=== PATIENT | female | born 1995 | race Caucasian/White ===

== ENCOUNTER 2019-01-09 11:40 | Emergency (ER) | payer OTHER ==
--- NOTE | 2019-01-09 12:27 | ERPHSYRPT ---
- History of Present Illness Time Seen by Provider: 01/09/19 12:15 Historian: patient Exam Limitations: clinical condition Patient Subjective Stated Complaint: since last c/o abdominal pain N/V/ D right side cramping. hx ovarian cyst,PCOS Triage Nursing Assessment: alert and in no distress. c/o right side abdominal pain witn n/v/d no pain on palpation. was able to eat pizza last night. was seen at the clinic on sunday.. had labs done that were negative. Physician History: PATIENT WITH A HISTORY OF POLYCYSTIC OVARIAN DISEASE COMPLAINS OF FREQUENT EMESIS AND WATERY DIARRHEA X 7 DAYS HAS ASSOCIATED LOWER MID ABDOMINAL PAINS. DENIES FEVER, URINARY SYMPTOMS BUT COMPLAINS OF VAGINAL SPOTTING. Timing/Duration: day(s) Activities at Onset: none Quality: sharpness Abdominal Pain Onset Location: suprapubic Pain Radiation: no radiation Severity of Pain-Max: moderate Severity of Pain-Current: moderate Modifying Factors: Improves With: nothing Associated Symptoms: loss of appetite, nausea Previous symptoms: no prior history Allergies/Adverse Reactions: No Known Drug Allergies Allergy (Unverified 07/28/13 16:43) Hx Influenza Vaccination/Date Given: No Hx Pneumococcal Vaccination/Date Given: No - Review of Systems Constitutional: No Symptoms, No Fever, No Chills Eyes: No Symptoms Ears, Nose, & Throat: No Symptoms Respiratory: No Cough, No Dyspnea Cardiac: No Chest Pain, No Edema, No Syncope Abdominal/Gastrointestinal: Abdominal Pain, Nausea, Vomiting, Diarrhea Genitourinary Symptoms: No Symptoms, No Dysuria Musculoskeletal: No Symptoms, No Back Pain, No Neck Pain Skin: No Rash Neurological: No Dizziness, No Focal Weakness, No Sensory Changes Psychological: No Symptoms Endocrine: No Symptoms All Other Systems: Reviewed and Negative - Past Medical History Pertinent Past Medical History: Yes Female Reproductive Disorders: Other Other Medical History: heart valve leakage,PCOS,ovarian cysts - Past Surgical History Past Surgical History: No - Social History Smoking Status: Never smoker Exposure to second hand smoke: No Drug Use: none Patient Lives Alone: No - Female History Hx Last Menstrual Period: unsure Hx Now: (UNKNOWN) - Nursing Vital Signs Nursing Vital Signs: Initial Vital Signs Temperature 97.7 F 01/09/19 12:03 Pulse Rate 89 01/09/19 12:03 Respiratory Rate 18 01/09/19 12:03 Blood Pressure 147/91 04/11/19 12:03 Pain Scale Pain Intensity 6 - Physical Exam General Appearance: no apparent distress, alert Eye Exam: PERRL/EOMI, eyes nml inspection Ears, Nose, Throat Exam: normal ENT inspection, pharynx normal, moist mucous membranes Neck Exam: normal inspection, non-tender, supple, full range of motion Respiratory Exam: normal breath sounds, lungs clear, No respiratory distress Cardiovascular Exam: regular rate/rhythm, normal heart sounds Gastrointestinal/Abdomen Exam: soft, normal bowel sounds, tenderness ( SUPRAPUBIC TENDERNESS, NO GUARDING), No mass Pelvic Exam: normal external exam, adnexal tenderness (MINIMAL LEFT ADNEXAL TENDERNESS, NORMAL UTERINE SIZE) Back Exam: normal inspection, normal range of motion, No CVA tenderness, No vertebral tenderness Extremity Exam: normal inspection, normal range of motion, pelvis stable Neurologic Exam: alert, oriented x 3, cooperative, normal mood/affect, nml cerebellar function, sensation nml, No motor deficits Skin Exam: normal color, warm, dry SpO2 Interpretation: normal SpO2: 98 - CT Exams Abdomen/Pelvis CT Interpretation: Discussed w/radiologist (NORMAL APPENDEX, PROMINENT OVARIES) Ordered Tests: Active Orders 24 hr Category Date Time Status Clean Catch Urine Specimen STAT Care 01/09/19 12:23 Active IV Insertion STAT Care 01/09/19 12:23 Active Orthostatic Vital Signs STAT Care 01/09/19 12:25 Active ABDOMEN AND PELVIS W CONTRAST [CT] Stat Exams 01/09/19 12:24 Completed BMP Stat Lab 01/09/19 12:15 Completed CBC W DIFF Stat Lab 01/09/19 12:15 Completed CULTURE,URINE Stat Lab 01/09/19 12:23 Received HCG QUALITATIVE,SERUM Stat Lab 01/09/19 12:15 Completed UA W/RFX UR CULTURE Stat Lab 01/09/19 12:23 Completed Wet Prep Stat Lab 01/09/19 13:45 Completed Medication Summary Generic Name Dose Route Start Last Admin Trade Name Freq PRN Reason Stop Dose Admin Sodium Chloride 1,000 mls @ 1,000 mls/hr 01/09/19 12:30 01/09/19 13:55 Sodium Chloride 0.9% 1000 Ml IV 02/08/19 12:29 Infused .Q1H KALEE Infusion Discontinued Medications Generic Name Dose Route Start Last Admin Trade Name Freq PRN Reason Stop Dose Admin Fentanyl Citrate 50 mcg 01/09/19 13:37 01/09/19 14:01 Sublimaze 100 Mcg/2 Ml IV 01/09/19 13:38 50 mcg STAT ONE Administration Fentanyl Citrate Confirm 01/09/19 13:57 Sublimaze 100 Mcg/2 Ml Administered 01/09/19 13:58 Dose 100 mcg .ROUTE .STK-MED ONE Ceftriaxone Sodium/Dextrose 1 g in 50 mls @ 100 mls/hr 01/09/19 13:11 14:08 Rocephin 1 Gm-D5w 50 Ml Bag IV 01/09/19 13:40 Infused STAT STA Infusion Ceftriaxone Sodium/Dextrose Confirm 01/09/19 13:29 Rocephin 1 Gm-D5w 50 Ml Bag Administered 01/09/19 13:30 Dose 1 g in 50 mls @ ud IV .STK-MED ONE Ketorolac Tromethamine 30 mg 01/09/19 13:36 01/09/19 14:02 Toradol 30 Mg Injection IV 01/09/19 13:37 30 mg STAT ONE Administration Ketorolac Tromethamine Confirm 01/09/19 13:56 Toradol 30 Mg Injection Administered 01/09/19 13:57 Dose 30 mg .ROUTE .STK-MED ONE Ondansetron HCl 4 mg 01/09/19 12:23 01/09/19 12:38 Zofran 4 Mg/2 Ml Vial IV 01/09/19 12:24 4 mg STAT ONE Administration Ondansetron HCl Confirm 01/09/19 12:28 Zofran 4 Mg/2 Ml Vial Administered 01/09/19 12:29 Dose 4 mg .ROUTE .STK-MED ONE Lab/Rad Data: Laboratory Result Diagrams 01/09/19 12:15 01/09/19 12:15 Laboratory Results 01/09/19 01/09/19 01/09/19 Range/Units 13:45 13:45 12:23 WBC (4.0-10.5) K/mm3 RBC (4.1-5.4) M/mm3 Hgb (12.0-16.0) gm/dl Hct (35-47) % MCV (78-100) fl MCH (26-32) pg MCHC (32-36) g/dl RDW (11.5-14.0) % Plt Count (150-450) K/mm3 MPV (6-9.5) fl Gran % (36.0-66.0) % Eos # (Auto) (0-0.5) Absolute Lymphs (auto) (1.0-4.6) Absolute Monos (auto) (0.0-1.3) Lymphocytes % (24.0-44.0) % Monocytes % (0.0-12.0) % Eosinophils % (0.00-5.0) % Basophils % (0.0-0.4) % Absolute Granulocytes (1.4-6.9) Basophils # (0-0.4) Sodium (137-145) mmol/L Potassium (3.5-5.1) mmol/L Chloride (98-107) mmol/L Carbon Dioxide (22-30) mmol/L Anion Gap (5-15) MEQ/L BUN (7-17) mg/dL Creatinine (0.52-1.04) mg/dL Estimated GFR ML/MIN Glucose (74-106) mg/dL Calcium (8.4-10.2) mg/dL Serum , Qual (Negative) Urine Color YELLOW (YELLOW) Urine Appearance CLOUDY (CLEAR) Urine pH 6.0 (5-6) Ur Specific [place] 1.023 (1.005-1.025) Urine Protein NEGATIVE (Negative) Urine Ketones NEGATIVE (NEGATIVE) Urine Blood LARGE (0-5) Stoney/ul Urine Nitrite NEGATIVE (NEGATIVE) Urine Bilirubin NEGATIVE (NEGATIVE) Urine Urobilinogen NEGATIVE (0-1) mg/dL Ur Leukocyte Esterase SMALL (NEGATIVE) Urine WBC (Auto) 11-15 (0-5) /HPF Urine RBC (Auto) 11-15 (0-2) /HPF U Epithel Cells (Auto) FEW (FEW) /HPF Urine Bacteria (Auto) MANY (NEGATIVE) /HPF Urine Mucus (Auto) SLIGHT (NEGATIVE) /HPF Urine Culture Reflexed YES (NO) Urine Glucose NEGATIVE (NEGATIVE) mg/dL WBC (Wet Prep) Rare RBC (Wet Prep) Few Epi Cells (Wet Prep) Few Bacteria (Wet Prep) Rare Clue Cells (Wet Prep) None Seen Trichomonas (Wet Prep) None Seen Budding Yeast (Wet Prp) None Seen Chlamydia DNA (PCR) NEGATIVE N.gonorrhoeae DNA Probe NEGATIVE 01/09/19 01/09/19 01/09/19 Range/Units 12:15 12:15 12:15 WBC 9.4 (4.0-10.5) K/mm3 RBC 5.03 (4.1-5.4) M/mm3 Hgb 13.9 (12.0-16.0) gm/dl Hct 43.3 (35-47) % MCV 86.1 (78-100) fl MCH 27.6 (26-32) pg MCHC 32.1 (32-36) g/dl RDW 13.9 (11.5-14.0) % Plt Count 334 (150-450) K/mm3 MPV 11.3 H (6-9.5) fl Gran % 70.7 H (36.0-66.0) % Eos # (Auto) 0.09 (0-0.5) Absolute Lymphs (auto) 2.00 (1.0-4.6) Absolute Monos (auto) 0.63 (0.0-1.3) Lymphocytes % 21.2 L (24.0-44.0) % Monocytes % 6.7 (0.0-12.0) % Eosinophils % 1.0 (0.00-5.0) % Basophils % 0.4 (0.0-0.4) % Absolute Granulocytes 6.67 (1.4-6.9) Basophils # 0.04 (0-0.4) Sodium 143 (137-145) mmol/L Potassium 4.0 (3.5-5.1) mmol/L Chloride 104 (98-107) mmol/L Carbon Dioxide 26 (22-30) mmol/L Anion Gap 16.7 H (5-15) MEQ/L BUN 11 (7-17) mg/dL Creatinine 0.88 (0.52-1.04) mg/dL Estimated GFR > 60.0 ML/MIN Glucose 90 (74-106) mg/dL Calcium 10.0 (8.4-10.2) mg/dL Serum , Qual NEGATIVE (Negative) Urine Color (YELLOW) Urine Appearance (CLEAR) Urine pH (5-6) Ur Specific [place] (1.005-1.025) Urine Protein (Negative) Urine Ketones (NEGATIVE) Urine Blood (0-5) Stoney/ul Urine Nitrite (NEGATIVE) Urine Bilirubin (NEGATIVE) Urine Urobilinogen (0-1) mg/dL Ur Leukocyte Esterase (NEGATIVE) Urine WBC (Auto) (0-5) /HPF Urine RBC (Auto) (0-2) /HPF U Epithel Cells (Auto) (FEW) /HPF Urine Bacteria (Auto) (NEGATIVE) /HPF Urine Mucus (Auto) (NEGATIVE) /HPF Urine Culture Reflexed (NO) Urine Glucose (NEGATIVE) mg/dL WBC (Wet Prep) RBC (Wet Prep) Epi Cells (Wet Prep) Bacteria (Wet Prep) Clue Cells (Wet Prep) Trichomonas (Wet Prep) Budding Yeast (Wet Prp) Chlamydia DNA (PCR) N.gonorrhoeae DNA Probe - Progress Progress: improved, pain not gone completely Progress Note: 01/09/19 15:39 IV NORMAL SALINE BOLUS 1 LITER, ZOFRAN 4MG, [id number], FENTANYL 50MCG IV, ALL LABS REVIEWED AND ARE NORMAL EXCEPT URINE WBC 11-15, BACTERIA-MANY, Counseled pt/family regarding: lab results, diagnosis, rad results - Departure Departure Disposition: Home Clinical Impression: ABDOMINAL PAIN, URINARY TRACT INFECTION Condition: Stable Critical Care Time: No Referrals: ANASTACIA RIDLEY RUG WEAVER [Primary Care Provider] - Additional Instructions: ANTIBIOTIC LEVAQUIN 500MG DAILY FOR 10 DAYS. ZOFRAN 4MG EVERY 6 HOURS FOR NAUSEA. TORADOL 10MG EVERY 6 HOURS FOR PAIN NEEDED. CONSULT YOUR PRIMARY CARE PROVIDER FOR FOLLOWUP IN 1 WEEK. Prescriptions: Ketorolac Tromethamine [Toradol] 10 mg PO Q6H PRN PRN #20 tablet PRN Reason: Pain Ondansetron ODT 4 MG [Zofran Odt 4 mg] 4 mg PO Q6H PRN PRN #10 tab.rapdis PRN Reason: Nausea Levofloxacin [Levaquin] 500 mg PO DAILY #10 tablet
[2019-01-09] MEDS ORDERED: Sodium Chloride 0.9% 1000 ML 1,000 ML ONE (12:28)
[2019-01-09] MEDS ORDERED: Zofran 4 MG/2 ML VIAL ONE (12:28)
[2019-01-09 12:35] LABS: ANION GAP 16.7 MEQ/L (5-15); BLOOD UREA NITROGEN 11 mg/dL (7-17); CHLORIDE 104 mmol/L (98-107); Carbon Dioxide 26 mmol/L (22-30); Creatinine 1 0.88 mg/dL (0.52-1.04); Glucose 90 mg/dL (74-106); SODIUM 143 mmol/L (137-145)
[2019-01-09] MEDS: Sodium Chloride 0.9% 1000 ML 1,000 ML IV SCH (12:37)
[2019-01-09] MEDS: Zofran 4 MG/2 ML VIAL IV ONE (12:38)
[2019-01-09 12:50] LABS: BASOPHIL % 0.4 % (0.0-0.4); Basophil (Absolute #) 0.04 (0-0.4); Eosinophil (Absolute #) 0.09 (0-0.5); Granulocyte Absolute (ANC) 6.67 (1.4-6.9); Granulocytes % 70.7 % (36.0-66.0); Hematocrit 43.3 % (35-47); Hemoglobin 13.9 gm/dl (12.0-16.0); Lymphocytes % 21.2 % (24.0-44.0); Mean Cell Volume 86.1 fl (78-100); Mean Corpuscular Hemoglobin 27.6 pg (26-32); Mean Corpuscular Hgb Concent. 32.1 g/dl (32-36); Mean Platelet Volume 11.3 fl (6-9.5); Monocyte (Absolute #) 0.63 (0.0-1.3); Monocytes % 6.7 % (0.0-12.0); Platelet Count 334 K/mm3 (150-450); Red Blood Count 5.03 M/mm3 (4.1-5.4); Red Cell Distribution Width 13.9 % (11.5-14.0); White Blood Count 9.4 K/mm3 (4.0-10.5)
[2019-01-09 13:03] LABS: Appearance CLOUDY (CLEAR); Bacteria MANY /HPF (NEGATIVE); Bilirubin NEGATIVE (NEGATIVE); Blood LARGE Ery/ul (0-5); Epithelial Cells FEW /HPF (FEW); Glucose NEGATIVE (NEGATIVE); Ketones NEGATIVE (NEGATIVE); Leukocyte Esterase SMALL (NEGATIVE); Mucus SLIGHT /HPF (NEGATIVE); Nitrite NEGATIVE (NEGATIVE); Protein,Urine Dip NEGATIVE (Negative); Specific Gravity 1.023 (1.005-1.025); Urobilinogen NEGATIVE mg/dL (0-1)
[2019-01-09] MEDS ORDERED: ROCEPHIN 1 Gm-D5w 50 ml Bag** 1 G/50 ML IVPB IV ONE (13:29)
[2019-01-09] MEDS: ROCEPHIN 1 Gm-D5w 50 ml Bag** 1 G/50 ML IVPB IV STA (13:33)
[2019-01-09] MEDS ORDERED: TORAdol 30 mg Injection ONE (13:56)
[2019-01-09] MEDS ORDERED: SUBLIMAZE 100 MCG/2 ML ONE (13:57)
[2019-01-09] MEDS: SUBLIMAZE 100 MCG/2 ML IV ONE (14:01)
[2019-01-09] MEDS: TORAdol 30 mg Injection IV ONE (14:02)
[2019-01-09 14:24] LABS: Bacteria Rare; Clue Cells None Seen
[2019-01-09 14:25] LABS: Trichomonas None Seen
[2019-01-09 14:27] LABS: Red Blood Cells Few; White Blood Cells Rare; Yeast None Seen
--- NOTE | 2019-01-09 15:10 | XRAY ---
Indication: Lower abdominal pain one week. Polycystic ovary syndrome reported on previous CT. Multiple contiguous axial images obtained through the abdomen and pelvis using 80 cc Isovue 300 contrast only. Comparison: April 23, 2017. Lung bases demonstrates bibasilar dependent atelectasis. No infiltrate or effusion. Heart is not enlarged. Noncontrasted stomach and bowel loops appear nonobstructed. Normal appendix. No free fluid/air. Again both ovaries are slightly prominent and presumed related to patient's history of polycystic ovary syndrome. Again mild diffuse fatty liver. Remaining liver, gallbladder, pancreas, spleen, adrenal glands, kidneys, ureters, bladder, uterus, and aorta appear unremarkable. No pathologic retroperitoneal lymphadenopathy. Osseous structures intact. Impression: 1. Stable bilaterally prominent ovaries presumed related to patient's history of polycystic ovary syndrome. 2. Stable fatty liver. 3. Remaining CT abdomen/pelvis with contrast exam is negative. CT DI 23.29
[2019-01-09 15:43] LABS: CHLAMYDIA DNA NEGATIVE; N GONORRHOEAE DNA NEGATIVE
[2019-01-09 16:01] VITALS: BP 135/82; PULSE 73; O2SAT 99
== END 2019-01-09 16:00 | disposition home or self-care (01) ==
LOC: ED 11:40
DX: N39.0 Urinary tract infection, site not specified (principal); E28.2 Polycystic ovarian syndrome
CPT/HCPCS: 36000; 36415; 74177; 80048; 81001; 81025; 85025; 87086; 87210; 87490; 87590; 96360; 96365; 96374; 96375; 99284; J0696; J1885; J2405; J3010

== ENCOUNTER 2020-08-28 22:21 | Emergency (ER) | payer OTHER ==
--- NOTE | 2020-08-28 22:22 | ERPHSYRPT ---
- History of Present Illness Time Seen by Provider: 08/28/20 22:22 Source: patient Exam Limitations: no limitations Physician History: Is a 25-year-old white female who is approximately 7 weeks and presents with one episode of scant vaginal bleeding just after sexual intercourse. Patient denies pain. She has had no bleeding since that time. Patient is here, per her report primarily because her was concerned. This is the patient's first . She has had no nausea vomiting. She has no urinary symptoms. Patient has not had an ultrasound and is scheduled for an ultrasound on 08/31/2020. Timing/Duration: today Activites at Onset: sexual activity Quality: other (No pain) Onset Location: other (No pain) Severity of Pain-Max: none Severity of Pain-Current: none Prior abdominal problems: none Sexual intercourse history: other (Patient had sexual intercourse just prior to the scant vaginal bleeding on wiping) Modifying Factors: Improves With: nothing Associated Symptoms: denies symptoms Allergies/Adverse Reactions: No Known Drug Allergies Allergy (Unverified 07/28/13 16:43) Hx Influenza Vaccination/Date Given: No Hx Pneumococcal Vaccination/Date Given: No Travel Risk - International Travel Have you traveled outside of the country in past 3 weeks: No - Coronavirus Screening Are you exhibiting any of the following symptoms?: No Close contact with a COVID-19 positive Pt in past 14-21 Days: No - Review of Systems Constitutional: No Symptoms Eyes: No Symptoms Ears, Nose, & Throat: No Symptoms Respiratory: No Symptoms Cardiac: No Symptoms Abdominal/Gastrointestinal: No Symptoms Genitourinary Symptoms: Vaginal Bleeding (Very scant immediately after sexual intercourse. No further bleeding at all since then.) Musculoskeletal: No Symptoms Skin: No Symptoms Neurological: No Symptoms Psychological: No Symptoms Endocrine: No Symptoms Hematologic/Lymphatic: No Symptoms Immunological/Allergic: No Symptoms All Other Systems: Reviewed and Negative - Past Medical History Pertinent Past Medical History: Yes Neurological History: No Pertinent History ENT History: No Pertinent History Cardiac History: No Pertinent History Respiratory History: No Pertinent History Endocrine Medical History: No Pertinent History Musculoskeletal History: No Pertinent History GI Medical History: No Pertinent History History: No Pertinent History Psycho-Social History: No Pertinent History Female Reproductive Disorders: Other Other Medical History: heart valve leakage,PCOS,ovarian cysts - Past Surgical History Past Surgical History: No Neuro Surgical History: No Pertinent History Cardiac: No Pertinent History Respiratory: No Pertinent History Gastrointestinal: No Pertinent History Genitourinary: No Pertinent History Musculoskeletal: No Pertinent History Female Surgical History: No Pertinent History - Social History Smoking Status: Never smoker Exposure to second hand smoke: No Drug Use: none Patient Lives Alone: No - Nursing Vital Signs Nursing Vital Signs: Initial Vital Signs Temperature 98.4 F 08/28/20 22:21 Pulse Rate 83 08/28/20 22:21 Respiratory Rate 18 08/28/20 22:21 Blood Pressure 130/76 08/28/20 22:21 O2 Sat by Pulse Oximetry 99 08/28/20 22:21 Pain Scale Pain Intensity 0 - Physical Exam General Appearance: no apparent distress, alert Eye Exam: PERRL/EOMI, eyes nml inspection Ears, Nose, Throat Exam: normal ENT inspection, moist mucous membranes Neck Exam: normal inspection, non-tender, supple, full range of motion Respiratory Exam: normal breath sounds, lungs clear, airway intact, No chest tenderness, No respiratory distress Cardiovascular Exam: regular rate/rhythm, normal heart sounds, normal peripheral pulses Gastrointestinal/Abdomen Exam: soft, normal bowel sounds, No tenderness Pelvic Exam: not done Rectal Exam: not done Back Exam: normal inspection, normal range of motion Extremity Exam: normal inspection, normal range of motion, pelvis stable Neurologic Exam: alert, oriented x 3, cooperative, home energy auditor II-XII nml as tested, normal mood/affect, nml cerebellar function, nml station & gait, sensation nml Skin Exam: normal color, warm, dry Lymphatic Exam: No adenopathy SpO2 Interpretation: normal O2 Delivery: Room Air - Course Nursing assessment & vital signs reviewed: Yes - Progress Progress: unchanged Air Movement: good Progress Note: 08/28/20 23:29 Medical decision making: This patient is approximately 7 weeks . She has a cause for her scant one-time vaginal bleeding. She has no abdominal pain. She has had no further bleeding all day since that one episode. On exam she has no abdominal pain whatsoever. Her abdomen is soft. Her vital signs are stable. I do not think she has an ectopic . I offered her a work-up including blood work urinalysis as well as scheduling for an outpatient vaginal ultrasound on 08/30/2030. However, the patient does not feel that the work-up is necessary. She stated she just wanted some reassurance so that she could explain to her . She does not believe anything is wrong. She prefers to be evaluated and worked up at her schedule appointment on 08/31/2020. I explained to her to watch out for increased vaginal bleeding or the presence of pain. Blood Culture(s) Obtained: No Antibiotics given: No Counseled pt/family regarding: diagnosis, need for follow-up - Departure Departure Disposition: Home Clinical Impression: Vaginal bleeding in patient after first trimester Condition: Stable Critical Care Time: No Additional Instructions: Watch for signs of worsening vaginal bleeding and/or abdominal pain. Keep your appointment with your link wire fabric machine operator on 08/31/2030. Return to the emergency department if symptoms recur
[2020-08-29 00:03] VITALS: BP 121/69; PULSE 84; O2SAT 98
== END 2020-08-28 23:58 | disposition home or self-care (01) ==
LOC: ED 22:21
DX: O20.9 Hemorrhage in early pregnancy, unspecified (principal); Z3A.01 Less than 8 weeks gestation of pregnancy
CPT/HCPCS: 99283

== ENCOUNTER 2021-06-18 19:36 | Emergency (ER) | payer OTHER ==
[2021-06-18] MEDS ORDERED: Sodium Chloride 0.9% 1000 ML 1,000 ML IV STA (20:22)
--- NOTE | 2021-06-18 20:26 | ERPHSYRPT ---
- History of Present Illness Time Seen by Provider: 06/18/21 20:23 Historian: patient Exam Limitations: no limitations Patient Subjective Stated Complaint: pt states "I'm covid positive and having stomach aches." Triage Nursing Assessment: pt ambulated into the er; pt is axo x4; pt is covid positive on 06/09; c/o abd pain; pt states 8/10 pain to epigastric region; pt states that she has not been able to eat for the past week; pt states that abd p ain started today; pt states that she has N/V/D; pt states that she took tylenol at 1400; vitals wnl; abd is soft, round, nontender; active bowel sounds in all quads Physician History: pt states "I'm covid positive and having stomach aches." Patient is 26-year-old female who recently has a baby 3 months ago and was positive for Covid 9 days ago when she was having a generalized body ache headache sinus fever which did got little bit better but today she started having periumbilical area abdominal pain associated with loss of appetite and nausea. She denies any fever chills. Timing/Duration: today Activities at Onset: none Quality: cramping Abdominal Pain Onset Location: periumbilical Severity of Pain-Max: mild Severity of Pain-Current: moderate Modifying Factors: Improves With: nothing Associated Symptoms: loss of appetite Allergies/Adverse Reactions: No Known Drug Allergies Allergy (Verified 06/18/21 20:07) Home Medications: No Reportable Medications [No Reported Medications] 06/18/21 [History] Hx Tetanus, Diphtheria Vaccination/Date Given: Yes Hx Influenza Vaccination/Date Given: No Hx Pneumococcal Vaccination/Date Given: No Travel Risk - International Travel Have you traveled outside of the country in past 3 weeks: No - Coronavirus Screening Are you exhibiting any of the following symptoms?: Yes Symptoms: Cough: New Onset, Vomiting/Diarrhea, Loss of Taste or Smell, Headaches/Body Aches/Fatigue Close contact with a COVID-19 positive Pt in past 14-21 Days: Yes - Vaccine Status Have you recieved a Covid-19 vaccination: No - Review of Systems Constitutional: Weakness, No Fever, No Chills Eyes: No Symptoms Ears, Nose, & Throat: No Symptoms Respiratory: No Cough, No Dyspnea Cardiac: No Chest Pain, No Edema, No Syncope Abdominal/Gastrointestinal: Abdominal Pain, Appetite Changes, No Nausea, No Vomiting, No Diarrhea Genitourinary Symptoms: No Dysuria Musculoskeletal: No Back Pain, No Neck Pain Skin: No Rash Neurological: No Dizziness, No Focal Weakness, No Sensory Changes Psychological: No Symptoms Endocrine: No Symptoms All Other Systems: Reviewed and Negative - Past Medical History Pertinent Past Medical History: Yes Neurological History: No Pertinent History ENT History: No Pertinent History Cardiac History: No Pertinent History Respiratory History: No Pertinent History Endocrine Medical History: No Pertinent History Musculoskeletal History: No Pertinent History GI Medical History: No Pertinent History History: No Pertinent History Psycho-Social History: No Pertinent History Female Reproductive Disorders: Endometriosis, Other Other Medical History: heart valve leakage,PCOS,ovarian cysts - Past Surgical History Past Surgical History: No Neuro Surgical History: No Pertinent History Cardiac: No Pertinent History Respiratory: No Pertinent History Gastrointestinal: No Pertinent History Genitourinary: No Pertinent History Musculoskeletal: No Pertinent History Female Surgical History: No Pertinent History Other Surgical History: "histeroscopy" - Social History Smoking Status: Never smoker Exposure to second hand smoke: No Drug Use: none Patient Lives Alone: No - Female History Hx Now: No - Nursing Vital Signs Nursing Vital Signs: Initial Vital Signs Temperature 97.2 F 06/18/21 20:08 Pulse Rate 87 06/18/21 20:08 Respiratory Rate 16 06/18/21 20:08 Blood Pressure 123/75 06/18/21 20:08 O2 Sat by Pulse Oximetry 97 06/18/21 20:08 Pain Scale Pain Intensity 7 - Physical Exam General Appearance: no apparent distress, alert Eye Exam: PERRL/EOMI, eyes nml inspection Ears, Nose, Throat Exam: normal ENT inspection, pharynx normal, moist mucous membranes Neck Exam: normal inspection, non-tender, supple, full range of motion Respiratory Exam: normal breath sounds, lungs clear, No respiratory distress Cardiovascular Exam: regular rate/rhythm, normal heart sounds Gastrointestinal/Abdomen Exam: soft, tenderness (periumbilical area), No mass Back Exam: normal inspection, normal range of motion, No CVA tenderness, No vertebral tenderness Extremity Exam: normal inspection, normal range of motion, pelvis stable Neurologic Exam: alert, oriented x 3, cooperative, normal mood/affect, nml cerebellar function, sensation nml, No motor deficits Skin Exam: normal color, warm, dry SpO2: 97 - Course Nursing assessment & vital signs reviewed: Yes - CT Exams Abdomen/Pelvis CT Interpretation: Tele-radiologist Report (fatty liver ) Ordered Tests: Active Orders 24 hr Category Date Time Status ABDOMEN AND PELVIS W&WO CONTRA [CT] Stat Exams 06/18/21 21:21 Taken AMYLASE Stat Lab 06/18/21 20:53 Completed CBC W DIFF Stat Lab 06/18/21 20:53 Completed CMP Stat Lab 06/18/21 20:53 Completed HCG,QUALITATIVE URINE Stat Lab 06/18/21 20:37 Completed LIPASE Stat Lab 06/18/21 20:53 Completed Manual Differential NC Stat Lab 06/18/21 20:53 Completed UA W/RFX UR CULTURE Stat Lab 06/18/21 20:37 Completed Medication Summary Discontinued Medications Generic Name Dose Route Start Last Admin Trade Name Freq PRN Reason Stop Dose Admin Sodium Chloride 1,000 mls @ 999 mls/hr 06/18/21 20:22 06/18/21 22:01 Sodium Chloride 0.9% 1000 Ml IV 06/18/21 21:22 Infused .Q1H1M STA Infusion Sodium Chloride Confirm 06/18/21 20:42 Sodium Chloride 0.9% 1000 Ml Administered 06/18/21 20:43 Dose 1,000 mls @ ud .ROUTE .STK-MED ONE Lab/Rad Data: Laboratory Result Diagrams 06/18/21 20:53 06/18/21 20:53 Laboratory Results 06/18/21 06/18/21 06/18/21 Range/Units 20:53 20:53 20:37 WBC 3.6 L (4.0-10.5) K/mm3 RBC 4.71 (4.1-5.4) M/mm3 Hgb 12.0 (12.0-16.0) gm/dl Hct 38.6 (35-47) % MCV 82.0 (78-100) fl MCH 25.5 L (26-32) pg MCHC 31.1 L (32-36) g/dl RDW 16.0 H (11.5-14.0) % Plt Count 285 (150-450) K/mm3 MPV 10.9 (7.5-11.0) fl Segmented Neutrophils 72 H (36.0-66.0) % Lymphocytes (Manual) 23 L (24-44) % Monocytes (Manual) 4 (0.0-12.0) % Atypical Lymphocytes 1 % Platelet Estimate NORMAL (NORMAL) RBC Morphology NORMAL Sodium 142 (137-145) mmol/L Potassium 4.0 (3.5-5.1) mmol/L Chloride 106 (98-107) mmol/L Carbon Dioxide 25 (22-30) mmol/L Anion Gap 15.2 H (5-15) MEQ/L BUN 11 (7-17) mg/dL Creatinine 0.81 (0.52-1.04) mg/dL Estimated GFR > 60.0 ML/MIN Glucose 120 H (74-106) mg/dL Calcium 9.3 (8.4-10.2) mg/dL Total Bilirubin 0.80 (0.2-1.3) mg/dL AST 633 H (14-36) U/L ALT 592 H (0-35) U/L Alkaline Phosphatase 92 (38-126) U/L Serum Total Protein 7.9 (6.3-8.2) g/dL Albumin 4.3 (3.5-5.0) g/dL Amylase 71 (30-110) U/L Lipase 180 (23-300) U/L Urine Color (YELLOW) Urine Appearance (CLEAR) Urine pH (5-6) Ur Specific [place] (1.005-1.025) Urine Protein (Negative) Urine Ketones (NEGATIVE) Urine Blood (0-5) St[place]/ul Urine Nitrite (NEGATIVE) Urine Bilirubin (NEGATIVE) Urine Urobilinogen (0-1) mg/dL Ur Leukocyte Esterase (NEGATIVE) Urine WBC (Auto) (0-5) /HPF Urine RBC (Auto) (0-2) /HPF U Epithel Cells (Auto) (FEW) /HPF Urine Bacteria (Auto) (NEGATIVE) /HPF Calcium Oxalate Crystal (NEGATIVE) /HPF Urine Mucus (Auto) (NEGATIVE) /HPF Urine Culture Reflexed (NO) Urine Glucose (NEGATIVE) mg/dL Urine HCG, Qual NEGATIVE (Negative) 06/18/21 Range/Units 20:37 WBC (4.0-10.5) K/mm3 RBC (4.1-5.4) M/mm3 Hgb (12.0-16.0) gm/dl Hct (35-47) % MCV (78-100) fl MCH (26-32) pg MCHC (32-36) g/dl RDW (11.5-14.0) % Plt Count (150-450) K/mm3 MPV (7.5-11.0) fl Segmented Neutrophils (36.0-66.0) % Lymphocytes (Manual) (24-44) % Monocytes (Manual) (0.0-12.0) % Atypical Lymphocytes % Platelet Estimate (NORMAL) RBC Morphology Sodium (137-145) mmol/L Potassium (3.5-5.1) mmol/L Chloride (98-107) mmol/L Carbon Dioxide (22-30) mmol/L Anion Gap (5-15) MEQ/L BUN (7-17) mg/dL Creatinine (0.52-1.04) mg/dL Estimated GFR ML/MIN Glucose (74-106) mg/dL Calcium (8.4-10.2) mg/dL Total Bilirubin (0.2-1.3) mg/dL AST (14-36) U/L ALT (0-35) U/L Alkaline Phosphatase (38-126) U/L Serum Total Protein (6.3-8.2) g/dL Albumin (3.5-5.0) g/dL Amylase (30-110) U/L Lipase (23-300) U/L Urine Color [place] (YELLOW) Urine Appearance SLIGHTLY CLOUDY (CLEAR) Urine pH 6.0 (5-6) Ur Specific [place] 1.023 (1.005-1.025) Urine Protein 100 (Negative) Urine Ketones SMALL (NEGATIVE) Urine Blood NEGATIVE (0-5) Stoney/ul Urine Nitrite NEGATIVE (NEGATIVE) Urine Bilirubin NEGATIVE (NEGATIVE) Urine Urobilinogen 2 (0-1) mg/dL Ur Leukocyte Esterase NEGATIVE (NEGATIVE) Urine WBC (Auto) 3-5 (0-5) /HPF Urine RBC (Auto) NONE (0-2) /HPF U Epithel Cells (Auto) RARE (FEW) /HPF Urine Bacteria (Auto) RARE (NEGATIVE) /HPF Calcium Oxalate Crystal 0-2 (NEGATIVE) /HPF Urine Mucus (Auto) SLIGHT (NEGATIVE) /HPF Urine Culture Reflexed NO (NO) Urine Glucose NEGATIVE (NEGATIVE) mg/dL Urine HCG, Qual (Negative) - Progress Progress: improved, pain not gone completely Counseled pt/family regarding: lab results, diagnosis, need for follow-up, rad results - Departure Departure Disposition: Home Clinical Impression: COVID-19 Abdominal pain Qualifiers: Abdominal location: periumbilical Qualified Code(s): R10.33 - Periumbilical pain Condition: Stable Critical Care Time: No Referrals: LEE ANN [facility]NA[facility] [ACTIVE STAFF] - Follow Up with PCP/3 days Instructions: Acute Abdomen (Belly Pain), Adult (DC) Additional Instructions: Discharge/Care Plan GLADIS SOMMER was seen on 06/18/21 in the Emergency Room. The patient was counseled regarding Diagnosis,Lab results, Imaging studies, need for follow up and when to return to the Emergency Room. Prescriptions given: Discharge Note I have spoken with the patient and/or caregivers. I have explained the patient's condition, diagnosis and treatment plan based on the information available to me at this time. I have answered the patient's and/or caregiver's questions and a ddressed any concerns. The patient and/or caregivers have as good understanding of the patient's diagnosis, condition and treatment plan as can be expected at this point. The vital signs have been stable. The patient's condition is stable and appropriate for discharge from the emergency department. The patient will pursue further outpatient evaluation with the primary care physician or other designated or consulting physician as outlined in the discharge instructions. The patient and/or caregivers are agreeable to this plan of care and follow-up instructions have been explained in detail. The patient and/or caregivers have received these instruction. The patient/and or caregivers are aware that any significant change in condition or worsening of symptoms should prompt an immediate return to this or the closest emergency department or call 911. GLADIS SOMMER was seen on 06/18/21 n the Emergency Room. At that time you were treated for an emergent condition, during your visit Laboratory, Radiology and/or other procedures may have been ordered. It is very important that you follow-up with your Primary Care Physician NO FAMILY DOCTOR within the next 24-48 hours to review your Emergency Room visit and the final results of testing that was ordered. Some test results such as Urine Cultures, Blood Cult ures, and other cultures if ordered will not be finalized for 24-48 hours. If you do not have a Primary Care Provider please call the medical records department at [phone] ext [phone] to obtain a copy of your results or you may sign into our patient portal to obtain these results by visiting us @ [email or web address] and completing the following steps: 1. Click on the Patient Portal link 2. Click the Patient Self Enrollment Link to complete the enrollment form and entering your 3. Once the enrollment form is completed you will receive an email with a tem porary ID and password at the email address you provided. 4. Next choose a user name and password. Your user name must be at least 4 characters long and your password must be at least 4 characters long. 5. Choose a security question from the list and provide your answer to the question. If you already have signed into the Health Portal you may access your Health Care Information 23/04 by the following steps: 1. Login to our website @ [email or web address] 2. Enter your original user name and password. FAQS The [facility] Health Portal is an online tool that contains your Lab Results, Radiology Reports, Visit History, Discharge Instructions and Health Summary Lab and Radiology Results will not be available for 72 hours on the portal. The Portal is a secure site, passwords are encryted and URLs are re-written so they cannot be copied and pasted. You and authorized family members are the only ones who can access your Portal. Also there is a timeout feature that protects your information if you leave the Portal page open. If you have technical difficulty please use the Contact Us link on the page this will allow you to submit any questions you have regarding the Portal or you may contact the Medical Record Department at [phone] ext [phone]. You are suffering from some of the coronavirus related symptoms including abdominal pain and elevated liver enzyme. Follow-up with your primary care physician in next 2 to 3 days for further work-up.
[2021-06-18] MEDS ORDERED: Sodium Chloride 0.9% 1000 ML 1,000 ML ONE (20:42)
[2021-06-18 20:44] LABS: Appearance SLIGHTLY CLOUDY (CLEAR); Bacteria RARE /HPF (NEGATIVE); Bilirubin NEGATIVE (NEGATIVE); Blood NEGATIVE Ery/ul (0-5); Calcium Oxalate Crystals 0-2 /HPF (NEGATIVE); Epithelial Cells RARE /HPF (FEW); Glucose NEGATIVE (NEGATIVE); Ketones SMALL (NEGATIVE); Leukocyte Esterase NEGATIVE (NEGATIVE); Mucus SLIGHT /HPF (NEGATIVE); Nitrite NEGATIVE (NEGATIVE); Protein,Urine Dip 100 (Negative); Specific Gravity 1.023 (1.005-1.025); Urobilinogen 2 mg/dL (0-1)
[2021-06-18 20:56] LABS: Hematocrit 38.6 % (35-47); Mean Corpuscular Hemoglobin 25.5 pg (26-32); Mean Corpuscular Hgb Concent. 31.1 g/dl (32-36); Mean Platelet Volume 10.9 fl (7.5-11.0); Platelet Count 285 K/mm3 (150-450); Red Blood Count 4.71 M/mm3 (4.1-5.4); White Blood Count 3.6 K/mm3 (4.0-10.5)
[2021-06-18 21:07] LABS: ALBUMIN 4.3 g/dL (3.5-5.0); ALKALINE PHOSPHATASE 92 U/L (38-126); AMYLASE 71 U/L (30-110); ANION GAP 15.2 MEQ/L (5-15); BLOOD UREA NITROGEN 11 mg/dL (7-17); CHLORIDE 106 mmol/L (98-107); Calcium 9.3 mg/dL (8.4-10.2); Carbon Dioxide 25 mmol/L (22-30); Creatinine 1 0.81 mg/dL (0.52-1.04); EST GLOMERULAR FILTRATION RATE > 60.0 ML/MIN; Glucose 120 mg/dL (74-106); LIPASE 180 U/L (23-300); SGOT/AST 633 U/L (14-36); SGPT/ALT 592 U/L (0-35); SODIUM 142 mmol/L (137-145); Total Protein 7.9 g/dL (6.3-8.2)
[2021-06-18 21:44] LABS: ATYPICAL LYMPHS 1 %; Lymphocytes 23 % (24-44); Monocyte 4 % (0.0-12.0); Neutrophils 72 % (36.0-66.0); Total Cells Counted 100
[2021-06-18 21:45] LABS: Platelet Estimate NORMAL (NORMAL)
[2021-06-18 23:06] VITALS: BP 126/81; PULSE 70; O2SAT 97
--- NOTE | 2021-06-19 07:43 | XRAY ---
Indication: Abdomen pain. Multiple contiguous axial images obtained through the abdomen and pelvis prior to and following 80 cc Isovue 370 contrast as ordered. Comparison: January 09, 2019. Lung bases demonstrates new mild bilateral patchy interstitial alveolar opacities. No effusion. Heart not enlarged. Noncontrasted images negative for pathologic visceral calcifications/calculi. Noncontrasted stomach and bowel loops appear nonobstructed. Normal appendix. No free fluid/air. Postcontrast images demonstrates normal visceral enhancement and renal excretion. Again fatty hepatomegaly measuring 21.5 cm. Remaining liver, gallbladder, pancreas, spleen, adrenal glands, kidneys, ureters, bladder, uterus, and aorta are unremarkable. No pathologic retroperitoneal lymphadenopathy. Osseous structures intact. No ventral or inguinal hernias. Impression: 1. New bibasilar patchy interstitial alveolar opacities. Rule out pneumonia. 2. Again incidental fatty hepatomegaly. 3. Remaining CT abdomen/pelvis with and without contrast exam is negative. Comment: Preliminary interpretation made by C. No critical discrepancy.
== END 2021-06-18 23:13 | disposition home or self-care (01) ==
LOC: ED 19:36
DX: U07.1 COVID-19 (principal); R10.33 Periumbilical pain
CPT/HCPCS: 36000; 36415; 74178; 80053; 81001; 82150; 83690; 84703; 85025; 96360; 99284

== ENCOUNTER 2022-07-21 04:31 | Emergency (ER) | payer OTHER ==
--- NOTE | 2022-07-21 04:36 | ERPHSYRPT ---
- History of Present Illness Time Seen by Provider: 07/21/22 04:35 Historian: patient Exam Limitations: no limitations Physician History: This is an overweight white female patient who is 27 years old and presents with epigastric abdominal pain with radiation to left subcostal region. Pain is described as "like a muscle cramp". It was sudden in onset and woke her up from sleep. Patient is under a lot of stress at this time. She has no diagnosed coronary artery disease. She is not short of breath. She is never had this kind of pain before. Patient ate baked chicken, mashed potatoes and green beans last night. She denies nausea vomiting. Timing/Duration: today Activities at Onset: none Quality: cramping Location: epigastric Severity of Pain-Max: mild Severity of Pain-Current: mild Modifying Factors: Improves With: nothing Associated Symptoms: abdominal pain (Epigastric abdominal pain), No nausea, No vomiting, No palpitations Prior Chest Pain/Cardiac Workup: no prior chest pain Nitro Today/Relief: no nitro taken today Aspirin Treatment Today: no aspirin today Allergies/Adverse Reactions: No Known Drug Allergies Allergy (Verified 06/18/21 20:07) Hx Tetanus, Diphtheria Vaccination/Date Given: Yes Hx Influenza Vaccination/Date Given: No Hx Pneumococcal Vaccination/Date Given: No Travel Risk - International Travel Have you traveled outside of the country in past 3 weeks: No - Coronavirus Screening Are you exhibiting any of the following symptoms?: No Close contact with a COVID-19 positive Pt in past 14-21 Days: No - Vaccine Status Have you recieved a Covid-19 vaccination: No - Review of Systems Constitutional: No Symptoms Eyes: No Symptoms Ears, Nose, & Throat: No Symptoms Respiratory: No Symptoms Cardiac: No Chest Pain Abdominal/Gastrointestinal: Abdominal Pain (Epigastric abdominal pain) Genitourinary Symptoms: No Symptoms Musculoskeletal: No Symptoms Skin: No Symptoms Neurological: No Symptoms Psychological: No Symptoms Endocrine: No Symptoms Hematologic/Lymphatic: No Symptoms Immunological/Allergic: No Symptoms All Other Systems: Reviewed and Negative - Past Medical History Pertinent Past Medical History: Yes Neurological History: No Pertinent History ENT History: No Pertinent History Cardiac History: No Pertinent History Respiratory History: No Pertinent History Endocrine Medical History: No Pertinent History Musculoskeletal History: No Pertinent History GI Medical History: No Pertinent History History: No Pertinent History Psycho-Social History: No Pertinent History Female Reproductive Disorders: Endometriosis, Other Other Medical History: heart valve leakage,PCOS,ovarian cysts - Past Surgical History Past Surgical History: No Neuro Surgical History: No Pertinent History Cardiac: No Pertinent History Respiratory: No Pertinent History Gastrointestinal: No Pertinent History Genitourinary: No Pertinent History Musculoskeletal: No Pertinent History Female Surgical History: No Pertinent History Other Surgical History: "histeroscopy" - Social History Smoking Status: Never smoker Exposure to second hand smoke: No Drug Use: none Patient Lives Alone: No - Female History Hx Now: No (N) - Nursing Vital Signs Nursing Vital Signs: Initial Vital Signs Temperature 98.3 F 07/21/22 04:32 Pulse Rate 79 07/21/22 04:32 Respiratory Rate 18 07/21/22 04:32 Blood Pressure 146/85 07/21/22 04:32 O2 Sat by Pulse Oximetry 99 07/21/22 04:32 Pain Scale Pain Intensity 7 - Physical Exam General Appearance: no apparent distress, alert, anxiety, obese Eye Exam: PERRL/EOMI, eyes nml inspection Ears, Nose, Throat Exam: normal ENT inspection, moist mucous membranes Neck Exam: normal inspection, non-tender, supple, full range of motion Respiratory Exam: normal breath sounds, lungs clear, airway intact, No chest tenderness, No respiratory distress Cardiovascular Exam: regular rate/rhythm, normal heart sounds, normal peripheral pulses Gastrointestinal/Abdomen Exam: soft, normal bowel sounds, tenderness (The gastric region) Pelvic Exam: not done Rectal Exam: not done Back Exam: normal inspection, normal range of motion, No CVA tenderness, No vertebral tenderness Extremity Exam: normal inspection, normal range of motion, pelvis stable Neurologic Exam: alert, oriented x 3, cooperative, 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 nml as tested, normal mood/affect, nml cerebellar function, nml station & gait, sensation nml Skin Exam: normal color, warm, dry Lymphatic Exam: No adenopathy SpO2 Interpretation: normal O2 Delivery: Room Air - Course Nursing assessment & vital signs reviewed: Yes EKG Interpreted by Me: RATE (78), Sinus Rhythm, NORMAL AXIS, NORMAL INTERVALS, NORMAL QRS, NORMAL ST-T, Other (No acute ischemic changes.) Ordered Tests: Active Orders 24 hr Category Date Time Status EKG-ER Only STAT Care 07/21/22 04:57 Active IV Insertion STAT Care 07/21/22 04:57 Active ABDOMEN AND PELVIS W/0 CONTRAS [CT] Stat Exams 07/21/22 04:57 Taken CHEST 1 VIEW (PORTABLE) Routine Exams 07/21/22 04:34 Taken AMYLASE Stat Lab 07/21/22 05:01 Completed CBC W DIFF Stat Lab 07/21/22 05:01 Completed CMP Stat Lab 07/21/22 05:01 Completed CULTURE,URINE Stat Lab 07/21/22 05:56 Received D-DIMER QUANTITATIVE Stat Lab 07/21/22 05:01 Completed LIPASE Stat Lab 07/21/22 05:01 Completed TROPONIN Q4H Lab 07/21/22 05:01 Completed TROPONIN Q4H Lab 07/21/22 09:00 Ordered TROPONIN Q4H Lab 07/21/22 13:00 Ordered UA W/RFX CULTURE Stat Lab 07/21/22 05:56 Completed Medication Summary Discontinued Medications Generic Name Dose Route Start Last Admin Trade Name Freq PRN Reason Stop Dose Admin Al Hydrox/Mg Hydrox/Simethicone Confirm 07/21/22 04:56 Mag Hydrox/Al Hydrox/Simeth 30 Ml Udcup Administered 07/21/22 04:57 Dose 30 ml .ROUTE .STK-MED ONE Lidocaine HCl Confirm 07/21/22 04:55 Lidocaine Hcl 2% Viscous 15 Ml Udcup Administered 07/21/22 04:56 Dose 15 ml .ROUTE .STK-MED ONE Magnesium Hydroxide 45 ml 07/21/22 04:57 07/21/22 04:59 Mag Hydrx/Alum Hyd/Simeth/Lido 45 Ml Bottle PO 07/21/22 04:58 45 ml STAT ONE Administration Morphine Sulfate 4 mg 07/21/22 05:06 07/21/22 05:10 Morphine Sulfate 4 Mg/Ml Injection IV 07/21/22 05:07 4 mg STAT ONE Administration Morphine Sulfate Confirm 07/21/22 05:09 Morphine Sulfate 4 Mg/Ml Injection Administered 07/21/22 05:10 Dose 4 mg .ROUTE .STK-MED ONE Ondansetron HCl 4 mg 07/21/22 05:06 07/21/22 05:10 Ondansetron Hcl 4 Mg/2 Ml Vial IV 07/21/22 05:07 4 mg STAT ONE Administration Ondansetron HCl Confirm 07/21/22 05:09 Ondansetron Hcl 4 Mg/2 Ml Vial Administered 07/21/22 05:10 Dose 4 mg .ROUTE .STK-MED ONE Lab/Rad Data: Laboratory Result Diagrams 07/21/22 05:01 07/21/22 05:01 Laboratory Results 07/21/22 07/21/22 07/21/22 Range/Units 05:56 05:01 05:01 WBC (4.0-10.5) x10^3/uL RBC (4.1-5.4) x10^6/uL Hgb (12.0-16.0) g/dL Hct (35-47) % MCV (78-100) fL MCH (26-32) pg MCHC (32-36) g/dL RDW (11.5-14.0) % Plt Count (150-450) x10^3/uL MPV (7.5-11.0) fL Gran % (36.0-66.0) % Immature Gran % (Auto) (0.00-0.4) % Nucleat RBC Rel Count (0.00-0.1) % Eos # (Auto) (0-0.5) x10^3/uL Immature Gran # (Auto) (0.00-0.03) x10^3u/L Absolute Lymphs (auto) (1.0-4.6) x10^3/uL Absolute Monos (auto) (0.0-1.3) x10^3/uL Absolute Nucleated RBC (0.00-0.01) x10^3u/L Lymphocytes % (24.0-44.0) % Monocytes % (0.0-12.0) % Eosinophils % (0.00-5.0) % Basophils % (0.0-0.4) % Absolute Granulocytes (1.4-6.9) x10^3/uL Basophils # (0-0.4) x10^3/uL D-Dimer 0.21 (0.0-0.50) mg/L Sodium (137-145) mmol/L Potassium (3.5-5.1) mmol/L Chloride (98-107) mmol/L Carbon Dioxide (22-30) mmol/L Anion Gap (5-15) MEQ/L BUN (7-17) mg/dL Creatinine (0.52-1.04) mg/dL Estimated GFR ML/MIN Glucose (74-106) mg/dL Calcium (8.4-10.2) mg/dL Total Bilirubin (0.2-1.3) mg/dL AST (14-36) U/L ALT (0-35) U/L Alkaline Phosphatase (38-126) U/L Troponin I < 0.012 (0.000-0.034) ng/mL Serum Total Protein (6.3-8.2) g/dL Albumin (3.5-5.0) g/dL Amylase (30-110) U/L Lipase (23-300) U/L Urinalys Dipstick Clnc MAIN LAB Urine Color YELLOW (YELLOW) Urine Appearance CLEAR (CLEAR) Urine pH 6.5 (5-6) Ur Specific [place] >=1.030 (1.005-1.025) POC Urine Protein Conf 30 (Negative) Urine Ketones NEGATIVE (NEGATIVE) Urine Nitrite NEGATIVE (NEGATIVE) Urine Bilirubin NEGATIVE (NEGATIVE) Urine Urobilinogen 0.2 (0-1) mg/dL Urine Leukocytes TRACE (NEGATIVE) Urine WBC (Auto) 6-10 (0-5) /HPF Urine RBC (Auto) 16-25 (0-2) /HPF U Epithel Cells (Auto) RARE (FEW) /HPF Urine Bacteria (Auto) RARE (NEGATIVE) /HPF Urine RBC LARGE (0-5) Stoney/ul Urine Mucus (Auto) SLIGHT (NEGATIVE) /HPF Ur Culture Indicated? YES Urine Glucose NEGATIVE (NEGATIVE) mg/dL 07/21/22 07/21/22 Range/Units 05:01 05:01 WBC 9.2 (4.0-10.5) x10^3/uL RBC 4.78 (4.1-5.4) x10^6/uL Hgb 13.1 (12.0-16.0) g/dL Hct 41.0 (35-47) % MCV 85.8 (78-100) fL MCH 27.4 (26-32) pg MCHC 32.0 (32-36) g/dL RDW 13.6 (11.5-14.0) % Plt Count 300 (150-450) x10^3/uL MPV 11.2 H (7.5-11.0) fL Gran % 61.8 (36.0-66.0) % Immature Gran % (Auto) 0.2 (0.00-0.4) % Nucleat RBC Rel Count 0.0 (0.00-0.1) % Eos # (Auto) 0.26 (0-0.5) x10^3/uL Immature Gran # (Auto) 0.02 (0.00-0.03) x10^3u/L Absolute Lymphs (auto) 2.38 (1.0-4.6) x10^3/uL Absolute Monos (auto) 0.79 (0.0-1.3) x10^3/uL Absolute Nucleated RBC 0.00 (0.00-0.01) x10^3u/L Lymphocytes % 25.8 (24.0-44.0) % Monocytes % 8.6 (0.0-12.0) % Eosinophils % 2.8 (0.00-5.0) % Basophils % 0.8 (0.0-0.4) % Absolute Granulocytes 5.69 (1.4-6.9) x10^3/uL Basophils # 0.07 (0-0.4) x10^3/uL D-Dimer (0.0-0.50) mg/L Sodium 139 (137-145) mmol/L Potassium 3.7 (3.5-5.1) mmol/L Chloride 106 (98-107) mmol/L Carbon Dioxide 25 (22-30) mmol/L Anion Gap 11.3 (5-15) MEQ/L BUN 14 (7-17) mg/dL Creatinine 0.82 (0.52-1.04) mg/dL Estimated GFR > 60.0 ML/MIN Glucose 122 H (74-106) mg/dL Calcium 9.4 (8.4-10.2) mg/dL Total Bilirubin 0.50 (0.2-1.3) mg/dL AST 42 H (14-36) U/L ALT 45 H (0-35) U/L Alkaline Phosphatase 102 (38-126) U/L Troponin I (0.000-0.034) ng/mL Serum Total Protein 8.1 (6.3-8.2) g/dL Albumin 4.6 (3.5-5.0) g/dL Amylase 65 (30-110) U/L Lipase 104 (23-300) U/L Urinalys Dipstick Clnc Urine Color (YELLOW) Urine Appearance (CLEAR) Urine pH (5-6) Ur Specific [place] (1.005-1.025) POC Urine Protein Conf (Negative) Urine Ketones (NEGATIVE) Urine Nitrite (NEGATIVE) Urine Bilirubin (NEGATIVE) Urine Urobilinogen (0-1) mg/dL Urine Leukocytes (NEGATIVE) Urine WBC (Auto) (0-5) /HPF Urine RBC (Auto) (0-2) /HPF U Epithel Cells (Auto) (FEW) /HPF Urine Bacteria (Auto) (NEGATIVE) /HPF Urine RBC (0-5) Stoney/ul Urine Mucus (Auto) (NEGATIVE) /HPF Ur Culture Indicated? Urine Glucose (NEGATIVE) mg/dL - Progress Progress: improved, re-examined Air Movement: good Progress Note: 07/21/22 04:39 Chest x-ray shows no acute cardiopulmonary process. 07/21/22 04:56 Medical decision making: This patient has epigastric pain and not chest pain. I do not think the patient will benefit from aspirin at this time. She may have a gallbladder issue, gastritis or even ulcer disease. I will avoid aspirin at this time 07/21/22 06:20 Patient states that the morphine pain medicine has now kicked in and she is feeling much better. 07/21/22 06:49 CAT scan of the abdomen pelvis without contrast shows layered gallstones. No evidence of pericholecystic fluid. There is evidence of fatty infiltration of the liver. 07/21/22 06:49 Blood Culture(s) Obtained: No Antibiotics given: No Counseled pt/family regarding: lab results, diagnosis, need for follow-up, rad results - Departure Departure Disposition: Home Clinical Impression: Cholelithiasis Condition: Stable Critical Care Time: No Referrals: MALLORY SARKAR [Primary Care Provider] - Follow up/PCP as directed Additional Instructions: Drink plenty of clear liquids. Avoid fatty greasy spicy foods. Follow-up with your primary care physician today by phone to make a follow-up appointment for further evaluation management including referral to a general surgeon if indicated. Prescriptions: Hydrocodone/APAP 5/325 [[place] 5/325 mg] 1 each PO Q8H PRN PRN #6 tablet MDD 3 PRN Reason: Pain
[2022-07-21] MEDS ORDERED: XYLOCAINE VISCOUS 2% 15 ML CUP ONE (04:55)
[2022-07-21] MEDS ORDERED: MAALOX ES 30 ML UNIT DOSE ONE (04:56)
[2022-07-21] MEDS ORDERED: GI COCKTAIL 45 ML (Maalox/Lidocaine) PO ONE (04:57)
[2022-07-21 05:01] LABS: Absolute Neutrophil Ct (ANC) 5.69 x10^3/uL (1.4-6.9); Basophil (Absolute #) 0.07 x10^3/uL (0-0.4); Eosinophil % 2.8 % (0.00-5.0); Eosinophil (Absolute #) 0.26 x10^3/uL (0-0.5); Hemoglobin 13.1 g/dL (12.0-16.0); Lymphocyte (Absolute #) 2.38 x10^3/uL (1.0-4.6); Lymphocytes % 25.8 % (24.0-44.0); Mean Cell Volume 85.8 fL (78-100); Mean Corpuscular Hemoglobin 27.4 pg (26-32); Mean Platelet Volume 11.2 fL (7.5-11.0); Monocyte (Absolute #) 0.79 x10^3/uL (0.0-1.3); Monocytes % 8.6 % (0.0-12.0); Neutrophil % 61.8 % (36.0-66.0); Platelet Count 300 x10^3/uL (150-450); Red Blood Count 4.78 x10^6/uL (4.1-5.4); Red Cell Distribution Width 13.6 % (11.5-14.0); White Blood Count 9.2 x10^3/uL (4.0-10.5)
[2022-07-21] MEDS ORDERED: MORPHINE SULFATE 4 MG INJ IV ONE (05:06)
[2022-07-21] MEDS ORDERED: Zofran 4 MG/2 ML VIAL IV ONE (05:06)
[2022-07-21] MEDS ORDERED: MORPHINE SULFATE 4 MG INJ ONE (05:09)
[2022-07-21] MEDS ORDERED: Zofran 4 MG/2 ML VIAL ONE (05:09)
[2022-07-21 05:13] LABS: ALBUMIN 4.6 g/dL (3.5-5.0); ALKALINE PHOSPHATASE 102 U/L (38-126); AMYLASE 65 U/L (30-110); ANION GAP 11.3 MEQ/L (5-15); BLOOD UREA NITROGEN 14 mg/dL (7-17); CHLORIDE 106 mmol/L (98-107); Calcium 9.4 mg/dL (8.4-10.2); Carbon Dioxide 25 mmol/L (22-30); Creatinine 1 0.82 mg/dL (0.52-1.04); EST GLOMERULAR FILTRATION RATE > 60.0 ML/MIN; Glucose 122 mg/dL (74-106); LIPASE 104 U/L (23-300); Potassium 3.7 mmol/L (3.5-5.1); SGOT/AST 42 U/L (14-36); SGPT/ALT 45 U/L (0-35); SODIUM 139 mmol/L (137-145); Total Protein 8.1 g/dL (6.3-8.2)
[2022-07-21 05:52] VITALS: O2SAT 98
[2022-07-21 06:02] LABS: Appearance CLEAR (CLEAR); Bacteria RARE /HPF (NEGATIVE); Bilirubin NEGATIVE (NEGATIVE); Dipstick done @ ? MAIN LAB; Epithelial Cells RARE /HPF (FEW); Glucose NEGATIVE (NEGATIVE); Ketones NEGATIVE (NEGATIVE); Mucus SLIGHT /HPF (NEGATIVE); Nitrite NEGATIVE (NEGATIVE); Ph 6.5 (5-6); Protein,Urine Dip 30 (Negative); RBC LARGE Ery/ul (0-5); Specific Gravity >=1.030 (1.005-1.025); Urobilinogen 0.2 mg/dL (0-1)
[2022-07-21 06:03] LABS: Urine Cultured Indicated? YES
[2022-07-21 06:48] VITALS: BP 122/85; PULSE 85
--- NOTE | 2022-07-21 08:58 | XRAY ---
Indication: Epigastric pain. Multiple contiguous axial images obtained through the abdomen and pelvis without contrast. Comparison: June 18, 2021 Lung bases demonstrates minimal subsegmental atelectasis/scarring. No infiltrate or effusion.. Heart not enlarged. Noncontrasted stomach and bowel loops nonobstructed again with normal appendix. New 1 cm gallstone. Again 22 cm fatty hepatomegaly and splenic calcified granuloma. No free fluid/air. Remaining liver, gallbladder, pancreas, spleen, adrenal glands, kidneys, ureters, bladder, uterus, and aorta are unremarkable for noncontrast exam. Osseous structures intact. No ventral or inguinal hernias. Impression: 1. New gallstone better evaluated with sonogram if clinically warranted. 2. Again fatty hepatomegaly and splenic calcified granuloma. 3. Remaining CT abdomen/pelvis without contrast exam is negative. Comment: Preliminary interpretation made by C. No critical discrepancy.
--- NOTE | 2022-07-21 09:00 | XRAY ---
Indication: Chest pain. Comparison: June 17, 2021 Portable chest now demonstrates normal heart and lungs again with incidental left hilar calcified nodes. Bony thorax intact. No new/acute findings.
== END 2022-07-21 07:27 | disposition home or self-care (01) ==
LOC: ED 04:31
DX: K80.20 Calculus of gallbladder without cholecystitis without obstruction (principal); R10.13 Epigastric pain; Z79.891 Long term (current) use of opiate analgesic
CPT/HCPCS: 36000; 36415; 71045; 74176; 80053; 81015; 82150; 83690; 84484; 85025; 85379; 87086; 93005; 96374; 96375; 99284; J2270; J2405; A9270-GY

== ENCOUNTER 2023-01-15 19:00 | Emergency (ER) | payer OTHER ==
--- NOTE | 2023-01-15 19:30 | ERPHSYRPT ---
- History of Present Illness Time Seen by Provider: 01/15/23 19:29 Historian: patient Exam Limitations: no limitations Physician History: This is a 27-year-old white female patient of Dr. Bridges who presents with 4- day history of bilateral flank pain followed by lower abdominal/suprapubic pain today. Patient's last menstrual period ended on 01/06/2023. Patient is on oral contraceptive agents. Today, the patient also had some spotting of blood vaginally. Patient has no chest pain. She denies shortness of breath. She has had no nausea vomiting or diarrhea. Patient does have a history of ruptured ovarian cysts in the past, endometriosis and polycystic ovary syndrome. Patient denies fever Timing/Duration: today, day(s) Activities at Onset: none Quality: sharpness Abdominal Pain Onset Location: suprapubic, flank (Bilateral) Pain Radiation: no radiation Severity of Pain-Max: mild (To moderate) Severity of Pain-Current: mild Modifying Factors: Improves With: nothing (To moderate) Associated Symptoms: back (Bilateral flank), other (Spotting blood vaginally today) Previous symptoms: no prior history, no recent treatment Allergies/Adverse Reactions: No Known Drug Allergies Allergy (Verified 01/15/23 19:33) Hx Tetanus, Diphtheria Vaccination/Date Given: Yes Hx Influenza Vaccination/Date Given: No Hx Pneumococcal Vaccination/Date Given: No Travel Risk - International Travel Have you traveled outside of the country in past 3 weeks: No - Coronavirus Screening Are you exhibiting any of the following symptoms?: No Close contact with a COVID-19 positive Pt in past 14-21 Days: No - Vaccine Status Have you recieved a Covid-19 vaccination: No - Review of Systems Constitutional: No Symptoms Eyes: No Symptoms Ears, Nose, & Throat: No Symptoms Respiratory: No Symptoms Cardiac: No Symptoms Abdominal/Gastrointestinal: Abdominal Pain (Suprapubic) Genitourinary Symptoms: Vaginal Bleeding (Described as spotting that started today) Musculoskeletal: No Symptoms Skin: No Symptoms Neurological: No Symptoms Psychological: No Symptoms Endocrine: No Symptoms Hematologic/Lymphatic: No Symptoms Immunological/Allergic: No Symptoms All Other Systems: Reviewed and Negative - Past Medical History Pertinent Past Medical History: Yes Neurological History: No Pertinent History ENT History: No Pertinent History Cardiac History: No Pertinent History Respiratory History: No Pertinent History Endocrine Medical History: No Pertinent History Musculoskeletal History: No Pertinent History GI Medical History: No Pertinent History History: No Pertinent History Psycho-Social History: No Pertinent History Female Reproductive Disorders: Endometriosis, Other Other Medical History: heart valve leakage,PCOS,ovarian cysts - Past Surgical History Past Surgical History: No Neuro Surgical History: No Pertinent History Cardiac: No Pertinent History Respiratory: No Pertinent History Gastrointestinal: No Pertinent History Genitourinary: No Pertinent History Musculoskeletal: No Pertinent History Female Surgical History: No Pertinent History Other Surgical History: "histeroscopy" - Social History Smoking Status: Never smoker Exposure to second hand smoke: No Drug Use: none Patient Lives Alone: No - Nursing Vital Signs Nursing Vital Signs: Initial Vital Signs Temperature 97.8 F 01/15/23 19:36 Pulse Rate 88 01/15/23 19:36 Respiratory Rate 16 01/15/23 19:36 Blood Pressure 130/74 01/15/23 19:36 O2 Sat by Pulse Oximetry 98 01/15/23 19:36 Pain Scale Pain Intensity 10 - Physical Exam General Appearance: no apparent distress, alert, anxiety Eye Exam: PERRL/EOMI, eyes nml inspection Ears, Nose, Throat Exam: normal ENT inspection, moist mucous membranes Neck Exam: normal inspection, non-tender, supple, full range of motion Respiratory Exam: normal breath sounds, lungs clear, airway intact, No chest tenderness, No respiratory distress Cardiovascular Exam: regular rate/rhythm, normal heart sounds, normal peripheral pulses Gastrointestinal/Abdomen Exam: soft, normal bowel sounds, tenderness (Mild suprapubic), guarding (Mild suprapubic to palpation) Pelvic Exam: not done Rectal Exam: not done Back Exam: normal inspection, normal range of motion, CVA tenderness (Mild bilateral), No vertebral tenderness Extremity Exam: normal inspection, normal range of motion, pelvis stable Neurologic Exam: alert, oriented x 3, cooperative, 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, normal mood/affect, nml cerebellar function, nml station & gait, sensation nml Skin Exam: normal color, warm, dry Lymphatic Exam: No adenopathy SpO2 Interpretation: normal O2 Delivery: Room Air - Course Nursing assessment & vital signs reviewed: Yes Ordered Tests: Active Orders 24 hr Category Date Time Status IV Insertion STAT Care 01/15/23 19:57 Active ABDOMEN AND PELVIS W/0 CONTRAS [CT] Stat Exams 01/15/23 19:58 Taken AMYLASE Stat Lab 01/15/23 20:30 Completed CBC W DIFF Stat Lab 01/15/23 20:30 Completed CMP Stat Lab 01/15/23 20:30 Completed CULTURE,URINE Stat Lab 01/15/23 19:49 Received HCG QUALITATIVE, URINE Stat Lab 01/15/23 19:49 Completed UA W/RFX UR CULTURE Stat Lab 01/15/23 19:49 Completed Medication Summary Generic Name Dose Route Start Last Admin Trade Name Freq PRN Reason Stop Dose Admin Ceftriaxone Sodium/Dextrose 1 g in 50 mls @ 100 mls/hr 01/15/23 21:16 01/15/23 21:20 Rocephin 1 Gm-D5w 50 Ml Bag IV 01/15/23 21:45 100 mls/hr STAT STA 100 mls/hr Administration Discontinued Medications Generic Name Dose Route Start Last Admin Trade Name Freq PRN Reason Stop Dose Admin Ceftriaxone Sodium/Dextrose 1 g in 50 mls @ 100 mls/hr 01/15/23 21:06 01/15/23 21:18 Rocephin 1 Gm-D5w 50 Ml Bag IV 01/15/23 21:35 Not Given STAT STA Ceftriaxone Sodium/Dextrose Confirm 01/15/23 21:19 Rocephin 1 Gm-D5w 50 Ml Bag Administered 01/15/23 21:20 Dose 1 g in 50 mls @ ud IV .[facility] Lab/Rad Data: Laboratory Result Diagrams 01/15/23 20:30 01/15/23 20:30 Laboratory Results 01/15/23 01/15/23 01/15/23 Range/Units 20:30 20:30 19:49 WBC 11.9 H (4.0-10.5) x10^3/uL RBC 4.79 (4.1-5.4) x10^6/uL Hgb 12.8 (12.0-16.0) g/dL Hct 40.4 (35-47) % MCV 84.3 (78-100) fL MCH 26.7 (26-32) pg MCHC 31.7 L (32-36) g/dL RDW 13.6 (11.5-14.0) % Plt Count 304 (150-450) x10^3/uL MPV 10.7 (7.5-11.0) fL Gran % 66.3 H (36.0-66.0) % Immature Gran % (Auto) 0.3 (0.00-0.4) % Nucleat RBC Rel Count 0.0 (0.00-0.1) % Eos # (Auto) 0.22 (0-0.5) x10^3/uL Immature Gran # (Auto) 0.04 H (0.00-0.03) x10^3u/L Absolute Lymphs (auto) 2.92 (1.0-4.6) x10^3/uL Absolute Monos (auto) 0.76 (0.0-1.3) x10^3/uL Absolute Nucleated RBC 0.00 (0.00-0.01) x10^3u/L Lymphocytes % 24.5 (24.0-44.0) % Monocytes % 6.4 (0.0-12.0) % Eosinophils % 1.8 (0.00-5.0) % Basophils % 0.7 (0.0-0.4) % Absolute Granulocytes 7.90 H (1.4-6.9) x10^3/uL Basophils # 0.08 (0-0.4) x10^3/uL Sodium 141 (137-145) mmol/L Potassium 3.8 (3.5-5.1) mmol/L Chloride 105 (98-107) mmol/L Carbon Dioxide 25 (22-30) mmol/L Anion Gap 14.5 (5-15) MEQ/L BUN 11 (7-17) mg/dL Creatinine 0.71 (0.52-1.04) mg/dL Estimated GFR > 60.0 ML/MIN Glucose 109 H (74-106) mg/dL Calcium 8.9 (8.4-10.2) mg/dL Total Bilirubin 0.40 (0.2-1.3) mg/dL AST 30 (14-36) U/L ALT 31 (0-35) U/L Alkaline Phosphatase 98 (38-126) U/L Serum Total Protein 8.2 (6.3-8.2) g/dL Albumin 4.4 (3.5-5.0) g/dL Amylase 62 (30-110) U/L Urine Color (Yellow) Urine Appearance (Clear) Urine pH (4.6-8.0) Ur Specific [place] (1.005-1.030) Urine Protein (Negative) Urine Glucose (UA) (Negative) mg/dL Urine Ketones (Negative) Urine Blood (Negative) Urine Nitrite (Negative) Urine Bilirubin (Negative) Urine Urobilinogen (0.2) mg/dL Ur Leukocyte Esterase (Negative) U Hyaline Cast (Auto) (0-2) /LPF Urine Microscopic RBC (0-5) /HPF Urine Microscopic WBC (0-5) /HPF Ur Epithelial Cells (None Seen) /HPF Urine Bacteria (None Seen) /HPF Urine Culture Reflexed (NO) Urine HCG, Qual NEGATIVE (NEGATIVE) 01/15/23 Range/Units 19:49 WBC (4.0-10.5) x10^3/uL RBC (4.1-5.4) x10^6/uL Hgb (12.0-16.0) g/dL Hct (35-47) % MCV (78-100) fL MCH (26-32) pg MCHC (32-36) g/dL RDW (11.5-14.0) % Plt Count (150-450) x10^3/uL MPV (7.5-11.0) fL Gran % (36.0-66.0) % Immature Gran % (Auto) (0.00-0.4) % Nucleat RBC Rel Count (0.00-0.1) % Eos # (Auto) (0-0.5) x10^3/uL Immature Gran # (Auto) (0.00-0.03) x10^3u/L Absolute Lymphs (auto) (1.0-4.6) x10^3/uL Absolute Monos (auto) (0.0-1.3) x10^3/uL Absolute Nucleated RBC (0.00-0.01) x10^3u/L Lymphocytes % (24.0-44.0) % Monocytes % (0.0-12.0) % Eosinophils % (0.00-5.0) % Basophils % (0.0-0.4) % Absolute Granulocytes (1.4-6.9) x10^3/uL Basophils # (0-0.4) x10^3/uL Sodium (137-145) mmol/L Potassium (3.5-5.1) mmol/L Chloride (98-107) mmol/L Carbon Dioxide (22-30) mmol/L Anion Gap (5-15) MEQ/L BUN (7-17) mg/dL Creatinine (0.52-1.04) mg/dL Estimated GFR ML/MIN Glucose (74-106) mg/dL Calcium (8.4-10.2) mg/dL Total Bilirubin (0.2-1.3) mg/dL AST (14-36) U/L ALT (0-35) U/L Alkaline Phosphatase (38-126) U/L Serum Total Protein (6.3-8.2) g/dL Albumin (3.5-5.0) g/dL Amylase (30-110) U/L Urine Color Yellow (Yellow) Urine Appearance Clear (Clear) Urine pH 6.0 (4.6-8.0) Ur Specific [place] 1.025 (1.005-1.030) Urine Protein Negative (Negative) Urine Glucose (UA) Negative (Negative) mg/dL Urine Ketones Negative (Negative) Urine Blood Negative (Negative) Urine Nitrite Negative (Negative) Urine Bilirubin Negative (Negative) Urine Urobilinogen 0.2 (0.2) mg/dL Ur Leukocyte Esterase Small A (Negative) U Hyaline Cast (Auto) NONE SEEN (0-2) /LPF Urine Microscopic RBC 3-5 (0-5) /HPF Urine Microscopic WBC 21-50 A (0-5) /HPF Ur Epithelial Cells Rare (None Seen) /HPF Urine Bacteria Rare A (None Seen) /HPF Urine Culture Reflexed YES (NO) Urine HCG, Qual (NEGATIVE) - Progress Progress: improved, pain not gone completely Progress Note: 01/15/23 21:32 CT Scan of the abdomen pelvis without contrast shows no acute intra-abdominal or intrapelvic abnormality 01/15/23 21:33 This patient's medical issue is 1 of moderate complexity. The level of complex ity and the work-up performed based on the patient's past medical history, review of the patient's medication list, review of the patient's drug allergy list, history present illness and physical findings on examination. Work-up performed includes intravenous line, urinalysis, test, CT scan of the abdomen pelvis, CMP, CBC and amylase level. Review of the results was performed by me. Patient has a urinary tract infection. We will provide her with Rocephin 1 g intravenously here in the emergency department followed by Cipro 5 mg orally twice a day as an outpatient for 7 days. Counseled pt/family regarding: lab results, diagnosis, need for follow-up, ez preciado Medical Desision Making - Independent Historian Additional History obtained from: Spouse - Discussion of managment Reviewed:: Test results Agreed on:: Treatment plan, need for follow-up - Diagnostic Testing Radiological Interpretation: Reviewed by me, Teleradiologist Report - Risk of complications The pt has a mod risk of morbidity or mortality based on: Need for prescription drug management - Departure Departure Disposition: Home Clinical Impression: UTI (urinary tract infection) Condition: Stable Critical Care Time: No Referrals: MALLORY BRIDGES [Primary Care Provider] - Follow up/PCP as directed Additional Instructions: Drink plenty of fluids. Take your antibiotics as prescribed. Follow-up with your primary care provider for further evaluation management. Prescriptions: Ciprofloxacin [Cipro 500 MG] 500 mg PO BID #14 tablet
[2023-01-15 19:37] VITALS: O2SAT 98
[2023-01-15 20:38] LABS: BASOPHIL % 0.7 % (0.0-0.4); Basophil (Absolute #) 0.08 x10^3/uL (0-0.4); Eosinophil % 1.8 % (0.00-5.0); Eosinophil (Absolute #) 0.22 x10^3/uL (0-0.5); Hematocrit 40.4 % (35-47); Hemoglobin 12.8 g/dL (12.0-16.0); IMMATURE GRAN # 0.04 x10^3u/L (0.00-0.03); IMMATURE GRAN % 0.3 % (0.00-0.4); Lymphocyte (Absolute #) 2.92 x10^3/uL (1.0-4.6); Lymphocytes % 24.5 % (24.0-44.0); Mean Cell Volume 84.3 fL (78-100); Mean Corpuscular Hemoglobin 26.7 pg (26-32); Mean Corpuscular Hgb Concent. 31.7 g/dL (32-36); Mean Platelet Volume 10.7 fL (7.5-11.0); Monocyte (Absolute #) 0.76 x10^3/uL (0.0-1.3); Monocytes % 6.4 % (0.0-12.0); Neutrophil % 66.3 % (36.0-66.0); Platelet Count 304 x10^3/uL (150-450); Red Blood Count 4.79 x10^6/uL (4.1-5.4); Red Cell Distribution Width 13.6 % (11.5-14.0); White Blood Count 11.9 x10^3/uL (4.0-10.5)
[2023-01-15 20:41] LABS: HCG URINE TEST NEGATIVE (NEGATIVE)
[2023-01-15 20:48] LABS: ALBUMIN 4.4 g/dL (3.5-5.0); ALKALINE PHOSPHATASE 98 U/L (38-126); AMYLASE 62 U/L (30-110); ANION GAP 14.5 MEQ/L (5-15); BLOOD UREA NITROGEN 11 mg/dL (7-17); CHLORIDE 105 mmol/L (98-107); Calcium 8.9 mg/dL (8.4-10.2); Carbon Dioxide 25 mmol/L (22-30); Creatinine 1 0.71 mg/dL (0.52-1.04); EST GLOMERULAR FILTRATION RATE > 60.0 ML/MIN; Glucose 109 mg/dL (74-106); Potassium 3.8 mmol/L (3.5-5.1); SGOT/AST 30 U/L (14-36); SGPT/ALT 31 U/L (0-35); SODIUM 141 mmol/L (137-145); Total Protein 8.2 g/dL (6.3-8.2)
[2023-01-15 20:56] LABS: Appearance Clear (Clear); Bacteria Rare /HPF (None Seen); Bilirubin Negative (Negative); Blood Negative (Negative); Epithelial Cells Rare /HPF (None Seen); Glucose, Urine Negative (Negative); Hyaline Casts NONE SEEN /LPF (0-2); Ketones Negative (Negative); Leukocyte Esterase Small (Negative); Nitrite Negative (Negative); Protein,Urine Dip Negative (Negative); Specific Gravity 1.025 (1.005-1.030); Urobilinogen 0.2 mg/dL (0.2); WBC 21-50 /HPF (0-5)
[2023-01-15 20:57] LABS: ADD URINE CULTURE? YES (NO)
[2023-01-15] MEDS ORDERED: ROCEPHIN 1 Gm-D5w 50 ml Bag** 1 G/50 ML IVPB IV STA ×2 (21:06→21:16)
[2023-01-15 21:12] VITALS: BP 109/78; PULSE 86
[2023-01-15] MEDS ORDERED: ROCEPHIN 1 Gm-D5w 50 ml Bag** 1 G/50 ML IVPB IV ONE (21:19)
--- NOTE | 2023-01-16 08:44 | XRAY ---
Indication: Bilateral flank and suprapubic pain. Multiple contiguous axial images obtained through the abdomen and pelvis without contrast using renal stone protocol. Comparison: July 21, 2022 Lung bases again demonstrates mild dependent atelectasis. Heart not enlarged. Left kidney demonstrates new nonobstructing punctate calculus. No other renal calculus or evidence for obstructive uropathy in either system. Noncontrasted stomach and bowel loops appear nonobstructed with normal appendix. Interval cholecystectomy. Again 22 cm fatty hepatomegaly. No free fluid/air. Remaining liver, pancreas, spleen, adrenal glands, kidneys, ureters, bladder, uterus, and aorta are unremarkable for noncontrast exam. Osseous structures intact. Impression: 1. New nonobstructing left renal punctate calculus. 2. Again fatty hepatomegaly. 3. Remaining CT abdomen/pelvis without contrast exam is negative.
== END 2023-01-15 22:01 | disposition home or self-care (01) ==
LOC: ED 19:00
DX: N39.0 Urinary tract infection, site not specified (principal); R10.2 Pelvic and perineal pain; Z28.310 Unvaccinated for COVID-19
CPT/HCPCS: 36000; 36415; 74176; 80053; 81001; 81025; 82150; 85025; 87086; 99284; J0696